=== PATIENT | female | born 1980 | race Caucasian/White ===

== ENCOUNTER 2024-12-17 19:24 | Emergency (ER) | payer MEDICAID ==
[~2024-12-17] VITALS: Ht 162.6 cm; Wt 61.4 kg
[2024-12-17 19:33] VITALS: BP 140/82; PULSE 94; RESP 20; TEMP 98.1; O2SAT 99
== END 2024-12-17 19:49 | disposition left against medical advice (07) ==
LOC: EMS 19:26
DX: R51.9 Headache, unspecified (principal); Z53.21 Procedure and treatment not carried out due to patient leaving prior to being seen by health care provider